=== PATIENT | female | born 1970 | race Caucasian/White ===

== ENCOUNTER 2016-05-30 13:48 | Emergency (ER) | payer OTHER, MEDICAID ==
[2016-05-30 14:14] VITALS: TEMP 98.1
[2016-05-30] MEDS ORDERED: IBUPROFEN 200 MG TAB PO ONE (14:18)
[2016-05-30] MEDS ORDERED: DIAZEPAM 5 MG TAB PO ONE (14:19)
[2016-05-30] MEDS ORDERED: OXYCODONE/APAP 5/325 TAB PO ONE (14:19)
--- NOTE | 2016-05-30 14:38 | UCPHY ---
H & P Time Seen by Provider: 05/30/16 14:04 Patient Type: New HPI/ROS: This patient has a prior history of sciatica that recurs at times and over the last 2 nights she slipped on a floor due to changing housing situation she is staying with a friend. She reports that she developed onset of pain in her back over the past 2 days with this sleeping situation. The pain is left mid back and radiates down to the sciatic notch region and down the posterior aspect of the leg. She has mild tingling in the lower extremity associated with the symptoms. Her symptoms worsened with movement. She has not taken any medication for the pain prior to arrival. ROS: No fevers or chills. She reports no HEENT complaints. She has no cardiopulmonary complaints. She reports no genitourinary complaints. She has no focal weakness. No bowel or bladder incontinence. 10 point ROS is otherwise negative. Past Medical/Surgical History: Prior history of attention deficit hyperactivity disorder and bipolar Previous history of sciatica Smoking Status: Current every day smoker Physical Exam: General Appearance: Alert, no distress. Eyes: Pupils equal and round no pallor or injection. ENT, Mouth: Mucous membranes moist. Respiratory: There are no retractions, lungs are clear to auscultation. Cardiovascular: Regular rate and rhythm. Back: Patient has left paraspinous thoracic tenderness extends the lumbar and sciatic notch on the left. Straight leg raise is negative. No midline tenderness. Gastrointestinal: Abdomen is soft and nontender, no masses, bowel sounds normal. Neurological: Alert. Patient has slight diminished light touch sensation medial aspect of left lower leg. Otherwise normal light touch sensory exam. She maintains 5/5 strength in great toe dorsiflexion and plantar flexion bilaterally. She has 2+ symmetric patellar DTRs bilaterally and weak but symmetric Achilles DTRs bilaterally. Skin: Warm and dry, no rashes. Extremities are symmetrical, full range of motion. Psychiatric: Patient is initially tearful due to pain but mood is otherwise normal. She does not have pressured speech. She maintains logical thought content and is cooperative here. DIFFERENTIAL DIAGNOSIS: After history and physical exam differential diagnosis was considered for sciatica, low back strain, doubt UTI Constitutional: Initial Vital Signs Temperature (C) 36.7 C 05/30/16 14:10 Heart Rate 115 H 05/30/16 14:10 Respiratory Rate 20 05/30/16 14:10 Blood Pressure 117/98 H 05/30/16 14:10 O2 Sat (%) 95 05/30/16 14:10 O2 Delivery Mode Room Air Allergies/Adverse Reactions: povidone-iodine [From Betadine] Allergy (Mild, Verified 05/30/16 14:14) Rash soap [From Betadine] Allergy (Mild, Verified 05/30/16 14:14) Rash Home Medications: Medication Instructions Recorded Advair 100/50 (*) 05/30/16 Albuterol 05/30/16 Ibuprofen [Motrin (*)] 600 mg PO Q6 PRN #30 tab 05/30/16 Methocarbamol [Robaxin 750 mg (*)] 750 - 1,500 mg PO QID PRN #30 tab 05/30/16 oxyCODONE/APAP 5/325 [Percocet 1 - 2 tab PO Q4-6PRN PRN #18 tab 05/30/16 5/325 (*)] MDM/Departure - MDM ED Course/Re-evaluation: Ibuprofen, Valium, Percocet with improvement I counseled her regarding sciatica Discussion: no evid. of cauda equina - Depart Disposition: Home, Routine, Self-Care Clinical Impression: Sciatica of left side Condition: Good Instructions: Sciatica (ED) Additional Instructions: Diagnosis: Sciatica Plan: Ibuprofen-600 mg per 6 hours Methocarbamol muscle relaxant and Tylenol or Percocet in addition if needed. Take a stool softener while on Percocet prevent constipation Daily back stretches as described - 3 5 minutes each of hamstring stretch, pigeon, "sphynx" and "butterfly" Follow up with primary care physician for any ongoing symptoms despite the treatment plan. Prescriptions: Ibuprofen [Motrin (*)] 600 mg PO Q6 PRN #30 tab PRN Reason: Pain oxyCODONE/APAP 5/325 [Percocet 5/325 (*)] 1 - 2 tab PO Q4-6PRN PRN #18 tab PRN Reason: Pain Methocarbamol [Robaxin 750 mg (*)] 750 - 1,500 mg PO QID PRN #30 tab PRN Reason: Muscle Spasms Referrals: NONE *PRIMARY CARE P,. [Primary Care Provider] - As per Instructions Coral Castro MD [Medical Doctor] - As per Instructions - PQRS PQRS Measurement: NA
[2016-05-30 14:48] VITALS: BP 115/88; PULSE 112; RESP 16; O2SAT 93
== END 2016-05-30 14:59 | disposition home or self-care (01) ==
LOC: CED 13:48
DX: M54.32 Sciatica, left side (principal); F17.200 Nicotine dependence, unspecified, uncomplicated
CPT/HCPCS: G0463-PO